=== PATIENT | male | born 1980 | race Caucasian/White ===

== ENCOUNTER 2017-06-30 20:19 | Emergency (ER) | payer BC ==
[2017-06-30 20:25] VITALS: BP 136/95
[2017-06-30] MEDS ORDERED: ORPHENADRINE CITRATE 30 MG/ML VIAL IM ONE (20:33)
[2017-06-30] MEDS ORDERED: KETOROLAC TROMETHAMINE 60 MG/2 ML VIAL IM ONE ×2 (20:33)
[2017-06-30] MEDS ORDERED: ORPHENADRINE CITRATE 30 MG/ML VIAL ONE (20:33)
--- NOTE | 2017-06-30 20:41 | ERNOTE ---
Back Pain ER HPI Date of Service: 06/30/17 Presenting Symptoms: hx chronic back pain Time Seen by Provider: 06/30/17 20:26 Source: patient Exam Limitations: no limitations Immunizations: IMMUNIZATION HX Immunizations Up to Date Yes History of Influenza Vaccine Yes Hx Pneumococcal Vaccination No Allergies/Adverse Reactions: Allergies No Known Allergies Allergy (Unverified 06/22/14 13:51) Home Medications: HOME MEDICATIONS Cephalexin Monohydrate [Keflex] 500 mg PO QID #40 cap 06/30/17 [Last Taken Unknown] Naproxen [Naprosyn] 500 mg PO BID PRN #60 tab 06/30/17 [Last Taken Unknown] Narrative: Pt. comes in with C/o R lateral back pain that radiates down his R leg. Pt. denies any numbness tingling SOB, CP, NVD, fever, incontinence of bowel or bladder or recent injury. Pt. states that he saw his chiropractor to day and got an adjustment and a massage without relief. 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 Pt. has a history of chronic back pain intermittently for over 10 years and states that he had xrays years ago that showed facet joint disease and that the pain from this is usually resolved with adjustments from his chiropractor. Pt. states that laying flat or standing up straight exacerbates the pain. Review of Systems - Review of Systems Constitutional: Present: no symptoms reported. Absent: recent illness, fever, chills, weakness, fatigue EYE: Present: no symptoms reported ENT: Present: no symptoms reported Respiratory: Present: no symptoms reported. Absent: shortness of breath, cough , wheezing Cardiology: Present: no symptoms reported. Absent: chest pain, palpitations, edema Gastrointestinal/Abdominal: Present: no symptoms reported. Absent: nausea, vomiting, diarrhea Genitourinary: Present: no symptoms reported. Absent: frequency, pain, dysuria , hematuria, decreased urinary output, discharge Musculoskeletal: Present: back pain - R lateral lower. Absent: muscle pain, neck pain, joint pain Skin: Present: no symptoms reported. Absent: rash, change in hair/nails Neurological: Present: no symptoms reported. Absent: headache, dizziness/light- headedness, numbness, tingling All Other Systems: All systems neg except as marked - Patient's Past Medical History Patient History - Medical: No pertinent hx Patient History - Cardiac/Respiratory: No pertinent hx Patient History - Cancer: No Hx of Cancer Patient History - Surgical Procedures: Orthopedic Patient History - Other: None - Social History Living Situations: home Abuse History: No History of abuse Psych History: No pertinent hx Smoking Status: Never smoker Have you smoked in the past 12 months: No Alcohol Use: none Drug Use: none - Immunizations Immunizations Up to Date: Yes Hx Pneumococcal Vaccination: No History of Influenza Vaccine: Yes Physical Exam - Physical Exam General Appearance: Present: wd/wn, alert, no apparent distress Head Exam: Present: normal inspection, no evidence of injury Eye Exam: Normal inspection: bilateral Neck: Present: normal inspection Respiratory: Present: no respiratory distress, normal breath sounds, no accessory muscle use, chest nontender, lungs clear Cardiovascular/Chest: Present: regular rate, rhythm, no murmur, normal peripheral pulses Back Exam: Present: normal range of motion, no CVA tenderness, no vertebral tenderness, muscle spasm - R lateral paraspinous Extremity Exam: Present: normal inspection, non-tender, normal range of motion, no edema Neurological Exam: Present: alert, oriented, normal mood/affect, no motor/ sensory deficits Skin Exam: Present: normal color, warm/dry. Absent: pallor, skin rash ED Progress - Date and Time Seen: Date and Time: 06/30/17 21:23 Pt. with signs of UTI so I feel that this is likely pt. problem although pain is relieved with toradol and feel that pt. needs NSAIDs for pain and abx for UTI. - Vital Signs Patient's Vital Signs:: I have reviewed the patient's vital signs. Vital Signs: Vital Signs 06/30/17 06/30/17 20:21 20:25 Temperature 36.7 C 36.7 C Pulse Rate 82 82 Respiratory 16 16 Rate Blood Pressure 136/95 136/95 O2 Sat by Pulse 97 97 Oximetry - Progress/Reassessment Chief Complaint: Back Pain Departure Clinical Impression: UTI (urinary tract infection) Qualifiers: Urinary tract infection type: acute pyelonephritis Qualified Code(s): N10 - Acute pyelonephritis - Departure Disposition: Home self-care Condition: Good Instructions: Urinary Tract Infection, Adult, [id number] Additional Instructions: Please follow up with primary provider in 2-3 days if not improved Prescriptions: Cephalexin Monohydrate [Keflex] 500 mg PO QID #40 cap Naproxen [Naprosyn] 500 mg PO BID PRN #60 tab PRN Reason: Pain
[2017-06-30 20:56] LABS: Urine Bilirubin Negative (NEGATIVE); Urine Ketone Negative (NEGATIVE); Urine Nitrite Negative (NEGATIVE); Urine Protein Negative (NEGATIVE); Urine Urobilinogen Normal (NORMAL); Urine pH 6.5 pH (5.0-7.0)
[2017-06-30 21:10] LABS: Urine Appearance Clear; Urine Blood 5 /ul (NEGATIVE); Urine Color Yellow; Urine RBC TRACE /hpf (0-5); Urine WBC TRACE /hpf (0-5)
[2017-06-30 21:11] LABS: Urine Bacteria TRACE
[2017-06-30] MEDS ORDERED: CEPHALEXIN MONOHYDRATE 250 MG CAPSULE PO ONE (21:34)
[2017-06-30] MEDS ORDERED: CEPHALEXIN MONOHYDRATE 250 MG CAPSULE ONE (21:34)
== END 2017-06-30 21:35 | disposition home or self-care (01) ==
LOC: ER 20:19
DX: N10 Acute pyelonephritis (principal)